=== PATIENT | male | born 1975 | race Caucasian/White ===

== ENCOUNTER 2016-06-10 19:42 | Emergency (ER) | payer SELFPAY ==
[~2016-06-10] VITALS: Ht 182.9 cm; Wt 72.5 kg
[~2016-06-10 19:42] MED LIST: BACT2OIN TOP; BACT800T5 PO; CEPH500C3 PO
[2016-06-10 19:55] VITALS: BP 125/92; PULSE 87; RESP 18; TEMP 98.7; O2SAT 100
[2016-06-10] MEDS ORDERED: CLIN1CAP6 PO (21:52)
[2016-06-10] MEDS ORDERED: PERI0.126 SWISH-SPIT (21:52)
--- NOTE | 2016-06-10 21:55 | PD ---
HPI Chief Complaint: Oral / Dental Pain or Problem Time Seen by Provider: 21:52 Travel History International Travel<30 days: No Contact w/Intl Traveler<30days: No Traveled to known affect area: No History of Present Illness HPI 41-year-old male presents to the emergency room for evaluation of this past 10 days that worsened 2 days ago. Pain is localized to the left lower gum line. Patient denies fever, chills, swelling, and discharge. He states he cannot afford to get into a dentist. PFSH Past Medical History Autoimmune Disease: No Blood Disorders: No Cancer: No Cardiovascular Problems: No Diminished Hearing: No Endocrine: No Glaucoma: No Genitourinary: No Immune Disorder: No Musculoskeletal: No Neurologic: No Psychiatric: No Respiratory: No Past Surgical History Abdominal Surgery: No Genitourinary Surgery: No Oral Surgery: Yes (BROK[facility] JAW) Pacemaker: No Social History Alcohol Use: Yes (RARE) Tobacco Use: Yes (1 PACK PER DAY) Substance Use: Yes (marijuana daily; last used today (12/22/15)) Allergies-Medications (Allergen,Severity, Reaction): Coded Allergies: Penicillin (Verified Allergy, Severe, RASH, 12/22/15) *MDRO Multi-Drug Resistant Organism (Verified Adverse Reaction, Unknown, ) 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 Afebrile. Ambulatory. SKIN: Warm and dry. HEAD: Normocephalic. EYES: No scleral icterus. No injection or drainage. DENTAL: Severe decay throughout. Patient is missing most of his teeth. No erythema, obvious drainage or abscess. No edema. No submental, submental, or buccal induration. No malocclusion. Data Data Last Documented VS Vital Signs Date Time Temp Pulse Resp B/P Pulse Ox O2 Delivery O2 Flow Rate FiO2 06/10/16 19:55 98.7 87 18 125/92 100 Room Air MDM Medical Decision Making Medical Screen Exam Complete: Yes Emergency Medical Condition: Yes Medical Record Reviewed: Yes Differential Diagnosis Dentalgia versus abscess versus decay Narrative Course 41-year-old male presents to the emergency room for evaluation of dental pain for the past 10 days that worsened 2 days ago. No systemic signs of infection. Vital signs stable. Physical exam reveals severe decay throughout. Patient is missing most of his teeth. No erythema, obvious drainage or abscess. No edema. No submental, submental, or buccal induration. Discharged with Peridex and clindamycin. Told to follow up with dentist or return for worsening symptoms. He understands and agrees to plan. Diagnosis Primary Impression: Dental abscess Referrals: Dentist Patient Instructions: Dental Abscess (ED), General Instructions Additional Instructions: Rest and drink plenty of fluids. [place] your teeth twice daily. Peridex as directed. Clindamycin as directed, until gone. Follow-up with a dentist. Return to the emergency room for worsening symptoms. Med/Other Pt SpecificInfo: Prescription(s) given Scripts Clindamycin 300 Mg [id number] Mg PO Q8HR 7 Days Ref 0 Prov:Miguel Whitfield MD 06/10/16 Chlorhexidine Gluconate (Mouth) Liq (Peridex Liq)0.12% Soln15 Ml SWISH-SPIT BID #473 ML Ref 0 Prov:Miguel Whitfield MD 06/10/16 Disposition: 01 DISCHARGE HOME Condition: Stable Mitzy Su Jun 10, 2016 21:55
== END 2016-06-10 22:05 | disposition home or self-care (01) ==
LOC: PHED 19:42 → PHEFT 22:05
DX: K04.7 Periapical abscess without sinus (principal); F17.210 Nicotine dependence, cigarettes, uncomplicated; F12.90 Cannabis use, unspecified, uncomplicated
CPT/HCPCS: 99282